=== PATIENT | male | born 1990 | race Caucasian/White ===

== ENCOUNTER 2021-04-14 12:35 | Emergency (ER) | payer SELFPAY ==
[~2021-04-14] VITALS: Ht 185.4 cm; Wt 83.9 kg
[~2021-04-14 12:35] MED LIST: AMOXICILLIN500 M2 PO; CEPHALEXIN500 M1 PO; NAPROSYN500 MG PO
[2021-04-14] MEDS ORDERED: CLINDAMYCIN HC300 MG PO (13:01)
== END 2021-04-14 13:05 | disposition home or self-care (01) ==
LOC: ED 12:35
DX: K08.89 Other specified disorders of teeth and supporting structures (principal)

== ENCOUNTER 2024-10-21 23:57 | Emergency (ER) | payer OTHER ==
[~2024-10-21] VITALS: Ht 185.4 cm; Wt 136.1 kg
[~2024-10-21 23:57] MED LIST changes: +CLINDAMYCIN HC300 MG PO
[2024-10-22] MEDS ORDERED: ALBUTEROL 8 GM INHALER INH ONE (00:30)
[2024-10-22] MEDS ORDERED: BENZONATATE150 MG PO (02:15)
[2024-10-22] MEDS ORDERED: PREDNISONE20 M1 PO (02:15)
[2024-10-22] MEDS ORDERED: ZITHROMAX250 MG PO (02:15)
== END 2024-10-22 02:27 | disposition home or self-care (01) ==
LOC: ED 23:57
DX: J40 Bronchitis, not specified as acute or chronic (principal); Z79.899 Other long term (current) drug therapy